=== PATIENT | female | born 1925 | race Caucasian/White ===

== ENCOUNTER 2017-04-11 17:18 | Emergency (ER) | payer MEDICARE, BC ==
--- NOTE | 2017-04-11 18:17 | Emergency Department Record ---
History of Present Illness - General Chief Complaint: Abdominal Pain Stated Complaint: CONSTIPATED Time Seen by Provider: 04/11/17 18:13 Source: Patient Mode of Arrival: Ambulatory Limitations: No limitations - History of Present Illness Initial Comments: 89 yo female presents to ED for evaluation of constipation symptoms. Patient denies abdominal pain or vomiting, but reports "feeling stuffed". Patient denies fevers, chills, or recent illness or urinary symptoms. Patient reports that she takes Iron tablets daily but also takes dulcolax to counter her constipation symptoms. Onset/Timin -: Week(s) Location: Diffuse Radiation: None Migration to: No migration Severity: Moderate Quality: Fullness Consistency: Constant Improves With: Nothing Worsens With: Nothing Associated Symptoms: Denies other symptoms - Related Data Patient : No Home Medications Medication Instructions Recorded Confirmed Last Taken Alprazolam [Xanax] 0.25 mg PO ASDIR 04/11/17 04/11/17 Unknown Bisacodyl [Dulcolax] 5 mg PO DAILY 04/11/17 04/11/17 04/11/17 Ferrous Sulfate [Iron] 325 mg PO DAILY 04/11/17 04/11/17 04/11/17 Allergies Allergy/AdvReac Type Severity Reaction Status Date / Time erythromycin base Allergy "fugue" Verified 04/11/17 17:24 stage iodine Allergy PT UNSURE Verified 04/11/17 18:14 OF REACTION shellfish derived Allergy WHEEZING Verified 04/11/17 17:24 radium Allergy PT UNSURE Uncoded 11/14/15 00:42 OF REACTION Review of Systems Constitutional: Denies: Chills, Fever, Malaise, Night sweats Eyes: Denies: Eye discharge, Eye pain ENT: Denies: Congestion, Ear pain, Epistaxis Respiratory: Denies: Cough, Dyspnea Cardiovascular: Denies: Chest pain, Dyspnea on exertion Endocrine: Denies: Fatigue, Heat or cold intolerance Gastrointestinal: Reports: Constipation. Denies: Abdominal pain, Nausea, Vomiting Genitourinary: Denies: Incontinence, Retention Musculoskeletal: Denies: Arthralgia, Back pain, Gout, Joint swelling Skin: Denies: Bruising, Change in color Neurological: Denies: Abnormal gait, Confusion, Headache Psychiatric: Denies: Anxiety Hematological/Lymphatic: Denies: Anemia, Blood Clots Past Medical History - SOCIAL HISTORY Smoking Status: Former smoker - RESPIRATORY Hx Respiratory Disorders: No - CARDIOVASCULAR Hx Cardio Disorders: Yes Hx CHF: Yes Hx Hypertension: Yes Hx Irregular Heartbeat: Yes (afib) Comment:: CAD - NEURO Hx Neuro Disorders: Yes Hx CVA: Yes (1998) Hx TIA: Yes - GI Hx GI Disorders: No - Hx Genitourinary Disorders: No - ENDOCRINE Hx Endocrine Disorders: Yes Hx Diabetes: No Hx Thyroid Disease: Yes (hypo) - MUSCULOSKELETAL Hx Musculoskeletal Disorders: No - PSYCH Hx Psych Problems: No - HEMATOLOGY/ONCOLOGY Hx Hematology/Oncology Disorders: Yes Hx Anemia: Yes Physical Exam - General General Appearance: Alert, Oriented x3, Cooperative, No acute distress Limitations: No limitations - Head Head exam: Atraumatic, Normocephalic, Normal inspection Head exam detail: negative: Abrasion, Contusion, Hein's sign, General tenderness, Hematoma, Laceration - Eye Eye exam: Normal appearance. negative: Conjunctival injection, Periorbital swelling, Periorbital tenderness, Scleral icterus - ENT Ear exam: negative: Auricular hematoma, Auricular trauma Nasal Exam: negative: Active bleeding, Discharge, Dried blood, Foreign body Mouth exam: negative: Drooling, Laceration, Tongue elevation - Neck Neck exam: Normal inspection. negative: Meningismus, Tenderness - Respiratory Respiratory exam: Normal lung sounds bilaterally. negative: Respiratory distress, Rhonchi, Stridor, Wheezes - Cardiovascular Cardiovascular Exam: Regular rate, Normal rhythm, Normal heart sounds - GI/Abdominal GI/Abdominal exam: Soft. negative: Distended, Organomegaly, Pulsatile mass, Rebound, Rigid, Tenderness - Rectal Rectal exam: Deferred - exam: Deferred - Extremities Extremities exam: Normal inspection. negative: Calf tenderness, Pedal edema, Tenderness - Back Back exam: Denies: CVA tenderness (R), CVA tenderness (L) - Neurological Neurological exam: Alert, Normal gait, Oriented X3 - Psychiatric Psychiatric exam: Normal affect, Normal mood - Skin Skin exam: Normal color. negative: Abrasion Type of lesion: negative: abrasion Course - Reevaluation(s) Reevaluation #1: 04/11/17 19:17 AAS: Moderate cardiomegaly, non-obstructive gas pattern, no obstruction Patient was updated on results, will attempt MOM enema for constipation symptoms. Reevaluation #2: 04/11/17 20:45 Soap suds enema is being administered currently, will reassess. Reevaluation #3: 04/11/17 21:25 Patient reassessed following soap suds enema, reports large BM and that she is feeling much better. Repeat abdominal examination is benign, patient denies pain currently. Patient appears stable for discharge at this time. Disposition Disposition: Discharge Clinical Impression: Constipation Qualifiers: Constipation type: unspecified constipation type Qualified Code(s): K59.00 - Constipation, unspecified Disposition: Home, Self-Care Condition: (2) Stable Instructions: Constipation (ED) Additional Instructions: Return to ED if your symptoms worsen or if you have any concerns. Continue Dulcolax as prescribed. Follow-up with Dr. Saenz in 1-3 days as directed. Forms: Patient Portal Access Time of Disposition: 21:25 Quality - Quality Measures Quality Measures: N/A - Blood Pressure Screening Does Patient Have Any of the Following: Active Dx of HTN Blood Pressure Classification: Hypertensive Reading Systolic Measurement: 172 Diastolic Measurement: 99 Screening for High Blood Pressure: Patient Exclusion, Hx of HTN [[id number]]
--- NOTE | 2017-04-13 07:29 | RADIOLOGY REPORT ---
DATE: 04/11/2017 at 1845 hours. EXAM: ACUTE ABDOMINAL SERIES. HISTORY: Bloating and constipation for the past week. Lower abdominal pain. TECHNIQUE: A PA upright view of the chest and supine and upright AP views of the abdomen were obtained. COMPARISON: Previous chest x-ray dated 11/14/2015. FINDINGS: The heart is mildly enlarged but stable. There is calcification of the aorta. Calcified mediastinal and hilar lymph nodes are present. Calcified granulomas are also present within the upper lung pederson. There are mild chronic-appearing interstitial changes within both lungs. There are no acute infiltrates or effusions. There is no pneumothorax. There are multiple old, healed left rib fractures. Dextroconvex scoliosis is present within the thoracic spine. Degenerative changes are noted within the spine and left shoulder. Supine and upright views of the abdomen demonstrate a nonspecific abdominal gas pattern. Mild stool and air are present throughout the colon. A few nondistended, air-filled small bowel loops are present within the pelvis. There is no gross obstruction or pneumoperitoneum. There is no organomegaly or visible urinary tract calculus. Levoconvex scoliosis is present within the lumbar spine. Vascular calcifications are also noted within the pelvis. IMPRESSION: 1. NO ACUTE CHEST OR ABDOMINAL PATHOLOGY. 2. MILD STOOL AND AIR THROUGHOUT THE COLON. 3. ADDITIONAL CHRONIC FINDINGS ABOVE. JOB NUMBER: [id number] [facility]
== END 2017-04-11 21:59 | disposition home or self-care (01) ==
LOC: ER 17:18
DX: K59.00 Constipation, unspecified (principal); R10.9 Unspecified abdominal pain; I48.91 Unspecified atrial fibrillation; I10 Essential (primary) hypertension; I50.9 Heart failure, unspecified; I25.10 Atherosclerotic heart disease of native coronary artery without angina pectoris
CPT/HCPCS: 74022; 99283